=== PATIENT | male | born 1955 | race Caucasian/White ===

== ENCOUNTER 2018-12-07 08:17 | Day surgery (SDC) | payer OTHER ==
[2018-12-07 10:19] VITALS: BMI 35.6
[2018-12-07 10:32] VITALS: PULSE 55
[2018-12-07] MEDS ORDERED: Lactated Ringer's 500 ML IV ONE (10:32)
[2018-12-07] MEDS ORDERED: Propofol 10 mg/ml Inj (20 ML) ONE (10:39)
[2018-12-07 12:49] VITALS: BP 127/65; RESP 15; TEMP 98.2; O2SAT 98
== END 2018-12-07 11:55 | disposition home or self-care (01) ==
LOC: H.ENDO 08:17
PROVIDERS: ATTEND Internal Medicine Gastroenterology
DX: Z12.11 Encounter for screening for malignant neoplasm of colon (principal); E11.9 Type 2 diabetes mellitus without complications; E78.5 Hyperlipidemia, unspecified; I10 Essential (primary) hypertension; K21.9 Gastro-esophageal reflux disease without esophagitis; K92.1 Melena; K64.8 Other hemorrhoids; K44.9 Diaphragmatic hernia without obstruction or gangrene; K31.89 Other diseases of stomach and duodenum
CPT/HCPCS: 43239; 45378; 82948; 88305; J2001; J2704; J7120